=== PATIENT | male | born 2000 | race American Indian/Alaskan Native ===

== ENCOUNTER 2022-12-18 20:58 | Emergency (ER) | payer SELFPAY ==
--- NOTE | 2022-12-18 21:00 | DI.RAD_ITS ---
Exam(s) XR FOOT LT COMPLETE EXAM: XR FOOT LT COMPLETE CLINICAL HISTORY: Injury. TECHNIQUE: 2D digital imaging was performed of the left foot. Three images were obtained. AP, obli que and lateral views were obtained. COMPARISON: No exams were available for comparison FINDINGS: BONES: On the oblique view there is a curvilinear 4 mm density adjacent to the base of the 2nd metata rsal. No bony destructive lesion is seen. JOINTS: No dislocation present. SOFT TISSUE: Soft tissue swelling of the foot. IMPRESSION: Age indeterminate avulsion fracture seen at the base of the 2nd metatarsal on the oblique view. Soft tissue swelling of the foot. DATA REPOSITORY: RADIATION DOSE DELIVERED:
[2022-12-18 21:03] VITALS: BP 116/60; PULSE 103; RESP 16; TEMP 37.2; O2SAT 95
--- NOTE | 2022-12-18 21:14 | ED.GENADUL_ITS ---
Discharge Plan Disposition Patient Disposition: Home Condition: Stable Discharge Details Clinical Impression: Closed fracture of second metatarsal bone of left foot ED Provider: Kinza Dudley Discharge Instructions Instructions: Foot Fracture in Adults (ED) Additional Instructions: Wear the walking boot as needed for comfort. Rest, ice, compression, elevation. Please take Tylenol or Ibuprofen with food every 4-6 hours as needed for pain and swelling. Follow up with primary care provider in 3-5 days. Return to ED sooner if any worsening or concerns. Increase oral fluids. Follow-up with orthopedics within the next 1 to 2 weeks. Referrals: Malik Hoang MD [ [facility] STAFF PHYSICIAN] - 2 weeks Medical Decision Making 22-year-old male presents to the ER with a chief complaint of left foot swelling status post an injury at approximately 3:00 this afternoon. Patient was playing basketball when another player landed on his foot. He has been unable to bear weight since. He does have some swelling noted to the dorsal aspect of his foot. Distal CMS intact. He is able to move his ankle. Did not take any Tylenol or ibuprofen prior to arrival. He has been icing it and keeping it elevated. X-ray ordered, ibuprofen and ice. X-ray results are noted below, I did discuss the results with patient who verbalized understanding. Patient was placed in a walking boot and has his own crutches. Discussed home care and follow-up care with Ortho if needed. He verbalized understanding. This text was generated using [employer] dictation system, please disregard any oddities of phrase or misspellings. Imaging Data Radiologic Study: Imaging: X-Ray Radiologist's impression: TECHNIQUE: Imaging protocol: Radiologic exam of the left foot. Views: 3 or more views. COMPARISON: No relevant prior studies available. FINDINGS: Bones/joints: Age-indeterminate tiny avulsion fracture off the base of the 2nd metatarsal bone. Soft tissues: Minimal dorsal soft tissue swelling. IMPRESSION: 1. Age- indeterminate tiny avulsion fracture off the base of the 2nd metatarsal bone. 2. Minimal dorsal soft tissue swelling. Thank you for allowing us to participate in the care of your patient. Dictated and Authenticated by: Giovanny Guillen MD [facility] Mode of arrival: ambulatory . Date/Time Provider Initiated Documentation: 12/18/22 20:58 . Limitations to Documentation: no limitations . Information obtained by: patient, RN notes reviewed and old records reviewed . HPI Narrative: 22-year-old male presents to the ER with a chief complaint of left foot swelling status post an injury at approximately 3:00 this afternoon. Patient was playing basketball when another player landed on his foot. He has been unable to bear weight since. He does have some swelling noted to the dorsal aspect of his foot. Distal CMS intact. He is able to move his ankle. Did not take any Tylenol or ibuprofen prior to arrival. He has been icing it and keeping it elevated. Related Data Allergies Allergy/AdvReac Type Severity Reaction Status Date / Time No Known Drug Allergies Allergy Unverified 12/18/22 21:07 General Stated Complaint: Orthopedic HE: 4 Review of Systems All systems reviewed & are unremarkable except as noted in HPI and below Musculoskeletal Musculoskeletal: Reports as per HPI, Reports arthralgias and Reports joint swelling PFSH All Active Problems (Updated 12/18/22 @ 22:06 by Kinza Dudley NP) Closed fracture of second metatarsal bone of left foot (Acute) Social History Smoking risk assessment performed?: No Do you feel safe at home: Yes Exam Extrem Left lower extremity: foot Details: normal capillary refill, tenderness and edema Location: of the dorsal foot Ankle/foot/toe images: 1. Swelling Course Vital Signs Vital signs: Vital Signs Temperature 37.2 C 12/18/22 21:03 Pulse 103 H 12/18/22 21:03 Respiratory Rate 16 12/18/22 21:03 Blood Pressure 116/60 12/18/22 21:03 Pulse Oximetry 95 12/18/22 21:03 Temperature 37.2 C 12/18/22 21:03 Temperature Source Oral 12/18/22 21:03 Pulse 103 H 12/18/22 21:03 Respiratory Rate 16 12/18/22 21:03 Blood Pressure 116/60 12/18/22 21:03 Blood Pressure Position Sitting 12/18/22 21:03 Pulse Oximetry 95 12/18/22 21:03 Oxygen Delivery Method Room Air 12/18/22 21:03 Oxygen Flow Rate 0 12/18/22 21:03 Pain Level 7 12/18/22 21:03
[2022-12-18] MEDS: Ibuprofen 600 MG TAB PO (21:58)
--- NOTE | 2022-12-18 21:59 | DI.VRAD_ITS ---
PROCEDURE INFORMATION: Exam: XR Left Foot Exam date and time: 12/18/2022 9:43 PM Age: 22 years old Clinical indication: Other: Injury TECHNIQUE: Imaging protocol: Radiologic exam of the left foot. Views: 3 or more views. COMPARISON: No relevant prior studies available. FINDINGS: Bones/joints: Age-indeterminate tiny avulsion fracture off the base of the 2nd metatarsal bone. Soft tissues: Minimal dorsal soft tissue swelling. IMPRESSION: 1. Age-indeterminate tiny avulsion fracture off the base of the 2nd metatarsal bone. 2. Minimal dorsal soft tissue swelling. Dictated and Authenticated by: Giovanny Guillen MD. Ordering:CLAY Echols MD
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
--- OUTSIDE RECORDS SUMMARY | 2022-12-18 23:07 | XMS_ITS | CCD ---
Author Name Unknown Address [address] [place] [phone] Organization Unknown Address [address] [place] [phone] Care Team Providers Care Customs Compliance Manager Name Role Phone PONCE DANELLE Attending Physician [phone] Vital Signs Unknown or Not Available. Allergies Allergy Code Allergy Type Reaction Status No Known Drug Allergies 0 Drug allergy Active Procedures Unknown or Not Available. History of Immunizations Immunization Code Date DTaP 20 2001 Hib-Hep B 51 2001 pneumococcal conjugate PCV 7 100 IPV 10 2001 DTaP 20 2001 Hib-Hep B 51 2001 pneumococcal conjugate PCV 7 100 IPV 10 2001 DTaP 20 2001 Meningococcal MCV4O 136 02/02/2019 Problems Unknown or Not Available. Results Unknown or Not Available. Active Medications Medication Code Dose Units Frequency Route Modificatio n Start Date/Time Ultram 50MG Oral Tablet [id number] TABLET NEEDED EVERY 6 HOURS ORAL 04/09/2021 22:51 Prescription Detail TAKE 1 TABLET ORAL NEEDED EVERY 6 NAUN RS Medications Administered During Visit Unknown or Not Available. Encounters Encounter Diagnosis Diagnosis Code Start Date Localized enlarged lymph nodes [id number] 0 11/09/2021 Social History Smoking Status Code Start Date End Date Current some day smoker [id number] Patient Decision Aids Unknown or Not Available. Discharge Instructions You were admitted to [facility] on 11/09/2021 08:00 with a principal diagnosis of Localized enlarged lymph nodes You were discharged from [facility] on 11/09/2021 08:00 Should you have any questions prior to discharge, please contact a member of your healthcare team. If you have left the hospital and have any questions, please contact your primary care physician. Chief Complaint and Reason For Visit Chief Complaint Date of Onset ULTRASOUND 11/09/2021 Function Status Unknown or Not Available. Plan of Care Unknown or Not Available. Referral/Transition of Care Unknown or Not Available.
--- OUTSIDE RECORDS SUMMARY | 2022-12-18 23:07 | XMS_ITS | CCD ---
Author Name Unknown Address [address] [place] [phone] Organization Unknown Address [address] [place] [phone] Care Team Providers Care Balance Engineer Name Role Phone DANELLE PONCE Attending Physician [phone] Vital Signs Unknown or Not Available. Allergies Unknown or Not Available. Procedures Unknown or Not Available. History of [...] n Start Date/Time Ultram 50MG Oral Tablet [id number] 1 TABLET NEEDED EVERY 6 HOURS ORAL 04/09/2021 22:51 Prescription Detail TAKE 1 TABLET ORAL NEEDED EVERY 6 NAUN RS Medications Administered During Visit Unknown or Not Available. Encounters Encounter Diagnosis Diagnosis Code Start Date Knee pain 89888742 10/18/2020 Social History Smoking Status Code Start Date End Date Current some day smoker [id number] Patient Decision Aids Unknown or Not Available. Discharge Instructions You were admitted to [facility] on 10/18/2020 12:10 with a principal diagnosis of Pain in unspecified knee You were discharged from [facility] on 10/18/2020 12:10 Should you have any questions prior to discharge, please contact a member of your healthcare team. If you have left the hospital and have any questions, please contact your primary care physician. Chief Complaint and Reason For Visit Chief Complaint Date of Onset XRAY BILATERAL KNEE 10/18/2020 Function Status Unknown or Not Available. Plan of Care Unknown or Not Available. Referral/Transition of Care Unknown or Not Available.
--- OUTSIDE RECORDS SUMMARY | 2022-12-18 23:07 | XMS_ITS | CCD ---
Author Name Unknown Address [address] [place] [address] [phone] Organization Unknown Address [address] [place] [address] [phone] Care Team Providers Care Sonography Technician Name Role Phone SHEILA BLAKELY Attending Physician [phone] SHEILA BLAKELY Er Physician [phone] Vital Signs Vital Sign Value Unit Date/Time Recent/Initial ? BMI (Body Mass Index) 21.02 kg/m^2 04/09/2021 21: 34 Initial VS Weight Measured 155 lbs 04/09/2021 21:34 Ini tial VS Height 72 in 04/09/2021 21:34 Initial VS BSA (Body Surface Area) 1.89 m^2 04/09/2021 2 1:34 Initial VS BP Systolic 134 mmHg 04/09/2021 21:34 Initial VS BP Diastolic 78 mmHg 04/09/2021 21:34 Initia l VS Respiratory Rate 18 bpm 04/09/2021 21:34 In itial VS Heart Rate 80 bpm 04/09/2021 21:34 Initial VS O2 % BldC Oximetry 97 % 04/09/2021 21:34 Initial VS Body Temperature 97.8 degrees 04/09/2021 21:34 In itial VS BP Systolic 107 mmHg 04/09/2021 23:08 Most Re cent VS BP Diastolic 57 mmHg 04/09/2021 23:08 Most R ecent VS Respiratory Rate 18 bpm 04/09/2021 23:[address] Recent VS Heart Rate 67 bpm 04/09/2021 23:08 Most Rec ent VS O2 % BldC Oximetry 98 % 04/09/2021 23:08 Most Recent VS Body Temperature 98 degrees 04/09/2021 23:[address] Recent VS Allergies Allergy Code Allergy Type Reaction Status [...] Results Unknown or Not Available. Active Medications Medications Administered During Visit Medication Dose Units Frequency Route Date/Time of Last Dose Ketorolac Vial 30mg/ml (Toradol) 60 MG X1 INTRAMUSCULAR 04/09/2021 22: 46 Tramadol TAB 50 MG (Ultram) 50 MG X1 OR AL 04/09/2021 23:06 Tramadol TAB 50 MG (Ultram) 50 MG X1 OR AL 04/09/2021 23:07 Encounters Encounter Diagnosis Diagnosis Code Start Date Nondisplaced fracture of hea d of right radius, initial encounter for closed fracture [id number] 04/09/2021 Social History Smoking Status Code Start Date End Date Current some day smoker [id number] Patient Decision Aids Patient Decision Aid Arm Fracture in Adults Elbow Fracture Elbow Sprain PATIENT PORTAL Wrist Sprain Discharge Instructions You were admitted to [facility] on 04/09/2021 21:33 with a principal diagnosis of Nondisplaced fracture of head of right radius, initial encounter for closed fracture You were discharged from [facility] on 04/09/2021 23:07 Should you have any questions prior to discharge, please contact a member of your healthcare team. If you have left the hospital and have any questions, please contact your primary care physician. Chief Complaint and Reason For Visit Chief Complaint Date of Onset ELBOW PAIN Function Status Unknown or Not Available. Plan of Care Unknown or Not Available. Referral/Transition of Care Unknown or Not Available.
== END 2022-12-18 22:43 | disposition home or self-care (01) ==
LOC: ER 23:05
PROVIDERS: Emergency Provider Registered Nurse Emergency
DX: S92.322A Displaced fracture of second metatarsal bone, left foot, initial encounter for closed fracture (principal); W50.0XXA Accidental hit or strike by another person, initial encounter
CPT/HCPCS: 29515; 99283; 73630